=== PATIENT | male | born 1965 | race Caucasian/White ===

== ENCOUNTER 2021-02-12 16:41 | Emergency (ER) | payer OTHER ==
[~2021-02-12] VITALS: Ht 182.9 cm; Wt 84.1 kg
[2021-02-12 16:57] VITALS: BP 118/78
[2021-02-12] MEDS ORDERED: LIDOcaine 1% W/epiNEPHrine 1:200,000 10ml vial IJ ONE (20:50)
[2021-02-12] MEDS ORDERED: TETanus/Pertussis (Acell)/Diphther VAC/PF (Tdap-Adult) 0.5ml syringe IMVAC ONE (20:50)
[2021-02-12] MEDS ORDERED: tranexamic acid 100mg/ml inj. TP ONE (21:15)
[2021-02-12] MEDS ORDERED: CEPH250T PO (22:13)
== END 2021-02-12 22:37 | disposition home or self-care (01) ==
LOC: ER 16:41
DX: S91.311A Laceration without foreign body, right foot, initial encounter (principal); Z72.89 Other problems related to lifestyle; Z79.2 Long term (current) use of antibiotics; Z20.3 Contact with and (suspected) exposure to rabies; X58.XXXA Exposure to other specified factors, initial encounter; Y93.89 Activity, other specified; Y92.89 Other specified places as the place of occurrence of the external cause; Y99.8 Other external cause status
CPT/HCPCS: 12002; 73630; 90471; 90715; 99283